=== PATIENT | female | born 1950 | race Caucasian/White ===

== ENCOUNTER 2021-10-24 13:28 | Emergency (ER) | payer MEDICARE, BC ==
[~2021-10-24] VITALS: Ht 154.9 cm; Wt 46.9 kg
[2021-10-24] MEDS ORDERED: ATIV1TAB10 PO (13:48)
[2021-10-24 17:05] VITALS: BP 141/75
== END 2021-10-24 17:07 | disposition home or self-care (01) ==
LOC: M ED 13:28
DX: F43.0 Acute stress reaction (principal); F41.9 Anxiety disorder, unspecified; K21.9 Gastro-esophageal reflux disease without esophagitis; K22.70 Barrett's esophagus without dysplasia